=== PATIENT | female | born 1955 | race Caucasian/White ===

== ENCOUNTER 2024-09-30 12:55 | Inpatient (IN) | payer MEDICARE, OTHER ==
[~2024-09-30] VITALS: Ht 152.4 cm; Wt 56.3 kg
[2024-09-30] MEDS ORDERED: FUROSEMIDE 40 MG/4 ML VIAL ONE ×2 (13:20→14:31)
[2024-09-30 13:26] LABS: ABG BASE EXCESS -1.2 mmol/L (-2.0-3.0); ABG OXYGEN SATURATION 90.3 % (94.0-98.0); ABG PCO2 27.1 mmHg (32.0-45.0); ABG PH 7.505 (7.350-7.450); ABG PO2 57.5 mmHg (83.0-108.0); ABG TOTAL HEMOGLOBIN 10.9 G/dL (12.0-16.0); COHb 0.3 % (0.5-1.5); MetHb 0.4 % (0.0-1.5); O2Hb 89.7 % (94.0-97.0)
[2024-09-30] MEDS: FUROSEMIDE 40 MG/4 ML VIAL IV ONE (13:27)
[2024-09-30 13:46] LABS: BASOPHILS % (AUTO) 0.5 % (0.0-2.0); EOSINOPHILS # (AUTO) 0.3 K/uL (0.0-0.7); HEMATOCRIT 30 % (33-45); HEMOGLOBIN 10.3 g/dL (11.5-14.8); MEAN CORPUSCULAR HEMOGLOBIN 29 PG (26.0-33.0); MEAN CORPUSCULAR HGB CONC 35 g/dl (31.0-36.0); MEAN CORPUSCULAR VOLUME 83 fL (82-100); MONOCYTES # (AUTO) 0.7 K/uL (0.1-1.30); MONOCYTES % (AUTO) 8.5 % (2.0-12.0); PLATELET COUNT (AUTO) 334 K/uL (150-450); RED BLOOD CELL COUNT(AUTO) 3.58 MIL/uL (4.0-5.2); RED CELL DISTRIBUTION WIDTH 13.7 % (11.5-15.0)
[2024-09-30 14:05] LABS: CALCIUM, SERUM 9.3 mg/dL (8.5-10.1); CARBON DIOXIDE 28 mmol/L (21-32); CHLORIDE 101 mmol/L (98-107); CREATININE 0.6 mg/dL (0.6-1.3); GLUCOSE 251 mg/dL (74-106); NT-PRO BNP 3578 pg/mL (0-125); POTASSIUM 3.2 mmol/L (3.5-5.1); SODIUM SERUM 138 mmol/L (136-145); UREA NITROGEN, BLOOD 19 mg/dL (7-18)
[2024-09-30] MEDS: FUROSEMIDE 40 MG/4 ML VIAL IV SCH (14:36)
[2024-09-30] MEDS ORDERED: LEVO25TA7 PO (15:39)
[2024-09-30] MEDS ORDERED: SPIR25TA6 PO (15:39)
[2024-09-30] MEDS ORDERED: NIFE-34 PO (15:39)
[2024-09-30] MEDS ORDERED: ERGO500093 PO (15:39)
[2024-09-30] MEDS ORDERED: SACU1TAB4 PO (15:39)
[2024-09-30] MEDS ORDERED: CLOP75TA15 PO (15:39)
[2024-09-30] MEDS ORDERED: EZET10TA15 PO (15:39)
[2024-09-30] MEDS ORDERED: METO-357 PO (15:39)
[2024-09-30] MEDS ORDERED: ATOR40TA PO (15:39)
[2024-09-30] MEDS ORDERED: INSU100I4 SQ (15:39)
[2024-09-30] MEDS ORDERED: METF-442 PO (15:39)
[2024-09-30] MEDS ORDERED: DAPA10TA PO (15:39)
[2024-09-30] MEDS ORDERED: FENO145T21 PO (15:39)
[2024-09-30] MEDS ORDERED: ACETAMINOPHEN 325 MG TABLET PO PRN (18:00)
[2024-09-30] MEDS ORDERED: ONDANSETRON HCL/PF 4 MG/2 ML VIAL IVP PRN (18:00)
[2024-09-30] MEDS ORDERED: DEXTROSE 50%-WATER 50 ML DISP.SYRIN IV PRN (18:00)
[2024-09-30] MEDS: METFORMIN 500 MG TABLET PO SCH (18:08)
[2024-09-30] MEDS: ATORVASTATIN 40 MG TABLET PO SCH (18:08)
[2024-09-30] MEDS: POTASSIUM CL. PREMIX PERIPHER. 50 ML IV SCH (18:09)
[2024-09-30 20:00] VITALS: BP 155/71; TEMP 97.7; O2SAT 97
[2024-09-30] MEDS: BLOOD SUGAR DIAGNOSTIC 1 EACH STRIP IN SCH (22:01)
[2024-09-30] MEDS: NIFEdipine XL (30MG) 30 MG TAB PO SCH (22:02)
[2024-09-30] MEDS: INSULIN REGULAR, HUMAN 100 UNIT/ML 3 ML VIAL SQ PRN (22:51)
[2024-10-01] VITALS (9 sets, daily range): BP systolic 110–160; BP diastolic 60–73; TEMP 97.7–98.4; O2SAT 92–96
[2024-10-01 07:54] LABS: BASOPHILS % (AUTO) 0.5 % (0.0-2.0); EOSINOPHILS # (AUTO) 0.4 K/uL (0.0-0.7); EOSINOPHILS % (AUTO) 5.8 % (0.0-6.0); HEMATOCRIT 29 % (33-45); HEMOGLOBIN 10.1 g/dL (11.5-14.8); LYMPHOCYTES # (AUTO) 1.1 K/uL (0.8-4.8); LYMPHOCYTES % (AUTO) 15.7 % (20.0-44.0); MEAN CORPUSCULAR HEMOGLOBIN 29 PG (26.0-33.0); MEAN CORPUSCULAR HGB CONC 35 g/dl (31.0-36.0); MEAN CORPUSCULAR VOLUME 82 fL (82-100); MONOCYTES # (AUTO) 0.7 K/uL (0.1-1.30); MONOCYTES % (AUTO) 9.7 % (2.0-12.0); NEUTROPHILS # (AUTO) 4.8 K/uL (1.8-8.9); NEUTROPHILS % (AUTO) 68.3 % (43.0-81.0); PLATELET COUNT (AUTO) 317 K/uL (150-450); RED BLOOD CELL COUNT(AUTO) 3.54 MIL/uL (4.0-5.2); RED CELL DISTRIBUTION WIDTH 14.1 % (11.5-15.0); WHITE BLOOD COUNT (AUTO) 7.1 K/uL (4.3-11.0)
[2024-10-01] MEDS: LEVOTHYROXINE SODIUM 25 MCG TABLET PO SCH (08:19)
[2024-10-01] MEDS: DAPAGLIFLOZIN PROPANEDIOL 10 MG TABLET PO SCH (08:19)
[2024-10-01] MEDS: Fenofibrate 48 MG TABLET PO SCH (08:20)
[2024-10-01] MEDS: SPIRONOLACTONE 25 MG TABLET PO SCH (08:20)
[2024-10-01] MEDS: METOPROLOL SUCCINATE 50 MG TAB.SR.24H PO SCH (08:20)
[2024-10-01] MEDS: CLOPIDOGREL BISULFATE 75 MG TABLET PO SCH (08:20)
[2024-10-01] MEDS: EZETIMIBE 10 MG TABLET PO SCH (08:21)
[2024-10-01] MEDS: SACUBITRIL/VALSARTAN 49/51MG TABLET PO SCH (08:22)
[2024-10-01 08:30] LABS: CALCIUM, SERUM 8.2 mg/dL (8.5-10.1); CREATININE 0.6 mg/dL (0.6-1.3); MAGNESIUM 1.3 mg/dL (1.8-2.4)
[2024-10-01] MEDS: Magnesium 1GM/D5W 100ML PREMIX 100 ML IV SCH (09:23)
[2024-10-01] MEDS: POTASSIUM CHLORIDE 20 MEQ TAB.PRT.SR PO SCH (09:23)
[2024-10-01] MEDS: ENOXAPARIN SODIUM 40 MG/0.4 ML DISP.SYRIN SQ SCH (09:24)
[2024-10-01 12:08] LABS: THYROID STIMULATING HORMONE 1.96 uIU/mL (0.358-3.74)
[2024-10-01] MEDS: FUROSEMIDE 40 MG/4 ML VIAL IV SCH (12:26)
[2024-10-02] VITALS: BP 150/80; TEMP 98.2; O2SAT 93
[2024-10-02 04:00] VITALS: BP 127/54; TEMP 98.1; O2SAT 96
[2024-10-02 07:04] LABS: BASOPHILS % (AUTO) 0.6 % (0.0-2.0); EOSINOPHILS # (AUTO) 0.4 K/uL (0.0-0.7); EOSINOPHILS % (AUTO) 5.2 % (0.0-6.0); HEMATOCRIT 36 % (33-45); HEMOGLOBIN 12.4 g/dL (11.5-14.8); LYMPHOCYTES # (AUTO) 1.3 K/uL (0.8-4.8); LYMPHOCYTES % (AUTO) 17.6 % (20.0-44.0); MEAN CORPUSCULAR HEMOGLOBIN 29 PG (26.0-33.0); MEAN CORPUSCULAR HGB CONC 34 g/dl (31.0-36.0); MEAN CORPUSCULAR VOLUME 83 fL (82-100); MONOCYTES # (AUTO) 0.9 K/uL (0.1-1.30); MONOCYTES % (AUTO) 11.8 % (2.0-12.0); NEUTROPHILS # (AUTO) 4.8 K/uL (1.8-8.9); NEUTROPHILS % (AUTO) 64.8 % (43.0-81.0); PLATELET COUNT (AUTO) 385 K/uL (150-450); RED BLOOD CELL COUNT(AUTO) 4.33 MIL/uL (4.0-5.2); RED CELL DISTRIBUTION WIDTH 14.2 % (11.5-15.0); WHITE BLOOD COUNT (AUTO) 7.4 K/uL (4.3-11.0)
[2024-10-02 07:52] LABS: BILIRUBIN,TOTAL 0.7 mg/dL (0.2-1.0); CALCIUM, SERUM 8.7 mg/dL (8.5-10.1); CREATININE 0.9 mg/dL (0.6-1.3); MAGNESIUM 1.9 mg/dL (1.8-2.4); PHOSPHORUS 4.8 mg/dL (2.5-4.9); POTASSIUM 3.9 mmol/L (3.5-5.1); TOTAL PROTEIN, SERUM 6.8 g/dL (6.4-8.2)
[2024-10-02 08:00] VITALS: BP 134/68; TEMP 98.3; O2SAT 98
[2024-10-02] MEDS: POTASSIUM CHLORIDE 20 MEQ TAB.PRT.SR PO SCH (10:11)
[2024-10-02] MEDS: FUROSEMIDE 40 MG/4 ML VIAL IV SCH (10:11)
[2024-10-02] MEDS ORDERED: IOHEXOL-350 100 ML VIAL IV ONE (10:40)
[2024-10-02] MEDS ORDERED: IV NS 0.9% 250 ML IV ONE (10:41)
[2024-10-02] MEDS ORDERED: METOPROLOL TARTRATE INJ 5 MG/5 ML AMPUL ONE ×2 (10:41→11:28)
[2024-10-02] MEDS ORDERED: CT SWABBABLE VALVE TRANS SET 1 EA INFUS.SET MC ONE (10:41)
[2024-10-02] MEDS: METOPROLOL TARTRATE INJ 5 MG/5 ML AMPUL IVP PRN (11:00)
[2024-10-02] MEDS: NITROGLYCERIN 0.4 MG/TAB BOTTLE SL ONE (11:40)
[2024-10-02] MEDS ORDERED: NITROGLYCERIN 0.4 MG/TAB BOTTLE ONE (11:43)
[2024-10-02] MEDS ORDERED: NITROGLYCERIN 4.9 GM SPRAY ONE (11:48)
[2024-10-02 16:40] VITALS: BP 150/63; TEMP 98.3; O2SAT 94
[2024-10-02 20:00] VITALS: BP 112/70; TEMP 98.1; O2SAT 93
[2024-10-03 04:18] VITALS: BP 114/63; TEMP 97.8; O2SAT 99
[2024-10-03 07:02] LABS: BASOPHILS % (AUTO) 0.6 % (0.0-2.0); EOSINOPHILS # (AUTO) 0.4 K/uL (0.0-0.7); EOSINOPHILS % (AUTO) 5.2 % (0.0-6.0); HEMATOCRIT 37 % (33-45); HEMOGLOBIN 12.5 g/dL (11.5-14.8); LYMPHOCYTES # (AUTO) 1.5 K/uL (0.8-4.8); LYMPHOCYTES % (AUTO) 17.2 % (20.0-44.0); MEAN CORPUSCULAR HEMOGLOBIN 28 PG (26.0-33.0); MEAN CORPUSCULAR HGB CONC 34 g/dl (31.0-36.0); MEAN CORPUSCULAR VOLUME 83 fL (82-100); MONOCYTES % (AUTO) 11.2 % (2.0-12.0); NEUTROPHILS # (AUTO) 5.6 K/uL (1.8-8.9); NEUTROPHILS % (AUTO) 65.8 % (43.0-81.0); PLATELET COUNT (AUTO) 402 K/uL (150-450); RED BLOOD CELL COUNT(AUTO) 4.47 MIL/uL (4.0-5.2); RED CELL DISTRIBUTION WIDTH 14.4 % (11.5-15.0); WHITE BLOOD COUNT (AUTO) 8.5 K/uL (4.3-11.0)
[2024-10-03] MEDS: BUMETANIDE (1 MG) 1 MG TABLET PO SCH (08:32)
[2024-10-03 08:43] VITALS: BP 116/58; TEMP 98; O2SAT 96
[2024-10-03 08:53] LABS: ALBUMIN 3.1 g/dL (3.4-5.0); BILIRUBIN,TOTAL 0.5 mg/dL (0.2-1.0); CALCIUM, SERUM 8.7 mg/dL (8.5-10.1); MAGNESIUM 1.9 mg/dL (1.8-2.4); PHOSPHORUS 5.8 mg/dL (2.5-4.9); POTASSIUM 4.2 mmol/L (3.5-5.1); TOTAL PROTEIN, SERUM 6.9 g/dL (6.4-8.2)
[2024-10-03 09:55] VITALS: BP 109/54
[2024-10-03] MEDS ORDERED: BUME1TAB8 PO (10:47)
[2024-10-06] MEDS ORDERED: ERGOCALCIFEROL (VITAMIN D 2) 50,000 UNIT CAPSULE PO SCH (17:45)
== END 2024-10-03 13:55 | disposition home or self-care (01) | DRG 291 ==
LOC: ER 12:58 → TELE 15:50
PROVIDERS: ADMIT Nurse Practitioner Acute Care; ATTEND Nurse Practitioner Acute Care
DX: I11.0 Hypertensive heart disease with heart failure (principal); I50.31 Acute diastolic (congestive) heart failure; J96.01 Acute respiratory failure with hypoxia; D68.59 Other primary thrombophilia; J90 Pleural effusion, not elsewhere classified; J98.11 Atelectasis; I25.10 Atherosclerotic heart disease of native coronary artery without angina pectoris; E78.5 Hyperlipidemia, unspecified; E11.9 Type 2 diabetes mellitus without complications; E66.01 Morbid (severe) obesity due to excess calories; Z95.1 Presence of aortocoronary bypass graft; Z68.24 Body mass index [BMI] 24.0-24.9, adult; Z79.890 Hormone replacement therapy; Z79.02 Long term (current) use of antithrombotics/antiplatelets; Z79.4 Long term (current) use of insulin; Z79.899 Other long term (current) drug therapy; Z79.84 Long term (current) use of oral hypoglycemic drugs; E83.42 Hypomagnesemia; E87.6 Hypokalemia
CPT/HCPCS: 36415; 71045-TC; 75574; 80048-TC; 80053-TC; 80061-TC; 82728-TC; 82803-TC; 82962-TC; 83540-TC; 83735-TC; 83880; 84100-TC; 84439-TC; 84443-TC; 84484-TC; 85025-TC; 93307-TC; A4223; G0378; J1650; J1815; J1940; J3475; J3480; J3490; J7050; Q9967